=== PATIENT | male | born 1990 | race Caucasian/White ===

== ENCOUNTER 2017-03-23 13:06 | Emergency (ER) | payer MEDICAID ==
[~2017-03-23] VITALS: Ht 167.6 cm; Wt 96.0 kg
[2017-03-23 13:11] VITALS: Ht 167.6 cm; Wt 96.0 kg
[2017-03-23] MEDS ORDERED: CEPH-443 PO (14:16)
[2017-03-23] MEDS ORDERED: NEOM1PAC TP (14:16)
--- NOTE | 2017-03-23 15:19 | ERD ---
ER Documentation Chief Complaint Date/Time DATE: 03/23/17 TIME: 15:10 Chief Complaint suture removal to the back and left lower leg; painful to touch HPI This 26-year-old male who presents to the emergency department today for suture removal. Patient states he had sutures placed at [facility] in [place] on March 16, 2017. States that he was told some of his sutures are absorbable. States he was not given any antibiotics. States that he is concerned that 1 of his wound is infected. States that he was moving a bunch of items when several 100s of pounds of glass mirrors dropped while he was try to get out of the back of the truck and he states he fell backward. States that he had x-rays that were negative. States that he does have some low back pain. Denies any fevers or chills. ROS All systems reviewed and are negative except as per history of present illness. Medications Home Meds Active Scripts Neomycin Farley/Bacitrac Zn/Poly (Triple Antibiotic Ointment) 1 Each Oint.pack, 1 EACH TP BID, #10 Prov:TESSIE GONZALEZ PA-C 03/23/17 Cephalexin* (Keflex*) 500 Mg Capsule, 500 MG PO QID for 7 Days, CAP Prov:TESSIE GONZALEZ PA-C 03/23/17 Allergies Allergies: Coded Allergies: No Known Allergy (Unverified , 03/23/17) PMhx/Soc Hx Alcohol Use: Yes Hx Substance Use: No Hx Tobacco Use: No Smoking Status: Never smoker Physical Exam Vitals Vital Signs Date Time Temp Pulse Resp B/P Pulse Ox O2 Delivery O2 Flow Rate FiO2 03/23/17 13:11 98.2 110 18 156/87 97 Physical Exam Const: pleasant, No acute distress Head: Atraumatic Eyes: Normal Conjunctiva ENT: Normal External Ears, Nose and Mouth. Neck: Full range of motion..~ No meningismus. Resp: Clear to auscultation bilaterally Cardio: Regular rate and rhythm, no murmurs Abd: Soft, non tender, non distended. Normal bowel sounds Skin: Upper thoracic back with evidence of sutures placed. No erythema or warmth. No purulent drainage. Left leg with evidence of sutures placed. Localized erythema and mild drainage. Pulses 2+. Distal neurovascularly intact. Back: Lumbar spine no midline tenderness. Left sided paraspinal tenderness. Full active range of motion. Mild tenderness palpation. Pulses 2+. Distal neurovascularly intact Ext: No cyanosis, or edema Neur: Awake and alert Psych: Normal Mood and Affect Procedures/MDM This a 26-year-old male who presents the emergency department today for suture removal of sutures that he had placed at [facility]. I did ask the patient why he did not return to the hospital and he indicated that he was told to come to any emergency department he lives out in this area. Patient is afebrile and otherwise well-appearing. He is slightly tachycardic. On physical exam patient had evidence of sutures over his left anterior aspect of his lower leg as well as his upper thoracic region. Patient had indicated that he did have x-rays done on his shoulder and upper back and leg and there was no evidence of glass or foreign body remaining. I did remove 11 sutures on the patient's upper back and several on his lower extremity. Parts the area several sutures on the patient's lower extremity appeared to be absorbably however I did remove some of them given that the area around was erythematous. Patient tolerated the procedure well and there were no complication. 2 sutures were left in place to allow more time for healing. I have explained this to the patient. Given that there was some localized erythema I did give the patient a prescription for Keflex and triple antibiotic ointment. Patient was instructed to follow back up in 48 hours for a wound check and removal of those last 2 sutures. Patient was also complaining of low back pain and states that he did not have imaging done of his low back. Patient has no midline tenderness and I do not feel that he requires imaging at this time however given that patient fell on his back with a significant amount of weight on top of them I did offer to obtain imaging. Patient has declined at this time and stated that if his back was still hurting in a couple of days that he would return at that time when he had his sutures out. I do have low suspicion for acute fracture dislocation especially given that he has no midline tenderness. He does have some left-sided paraspinal pain and symptoms at this time likely most consistent with a contusion versus sprain versus strain. I have explained this to the patient At this time the patient is stable for discharge and outpatient management. Patient should follow up with their PCP in the next 1-2 days. They may return to the emergency department sooner for any persistent or worsening of symptoms. Patient understood and agreed with the plan. Departure Diagnosis: Primary Impression: Encounter for removal of sutures Additional Impression: Back pain Back pain location: low back pain Chronicity: acute Back pain laterality: left Sciatica presence: without sciatica Qualified Code: M54.5 - Acute left- sided low back pain without sciatica Condition: Fair Patient Instructions: Back Pain (Acute Or Chronic), Suture Removal, No Complication Referrals: your PCP Additional Instructions: Call your primary care doctor TOMORROW for an appointment during the next 1-2 days.See the doctor sooner or return here if your condition worsens before your appointment time. Wound check in 48 hours Take antibiotics as prescribed Use triple antibiotic Keep wound clean and dry Take Tylenol or Motrin for pain TESSIE GONZALEZ PA-C Mar 23, 2017 15:19
== END 2017-03-23 14:23 | disposition home or self-care (01) ==
LOC: FTE 13:06
DX: Z48.02 Encounter for removal of sutures (principal); M54.5 Low back pain
CPT/HCPCS: 99284

== ENCOUNTER 2017-03-25 14:23 | Emergency (ER) | payer MEDICAID ==
[~2017-03-25] VITALS: Wt 92.5 kg
[~2017-03-25 14:23] MED LIST: CEPH-443 PO; NEOM1PAC TP
[2017-03-25] MEDS ORDERED: LIDOCAINE 4% CR TOP ONE (15:00)
[2017-03-25 16:06] LABS: URINE BLOOD (Dip) POC Negative (NEGATIVE)
--- NOTE | 2017-03-25 16:43 | RADRPT ---
PROCEDURE: XR Lumbar Spine. CLINICAL INDICATION: Fall, pain TECHNIQUE: AP, lateral and cone-down lateral views of the lumbar spine were obtained. COMPARISON: No prior studies are available for comparison. FINDINGS: There is a normal lumbar lordosis. Vertebral body heights appear normal. Intervertebral disk spaces are maintained There is no fracture or dislocation. The facet joints are unremarkable. There is no pars defect identified. The sacroiliac joints appear normal. The soft tissues appear unremarkable. IMPRESSION: Unremarkable lumbar spine. No visualized fracture or dislocation. RPTAT: HBST .Elijah Aparicio MD, MD Date Time Electronically viewed and signed by .Elijah Aparicio MD, on 03/25/2017 16:43 .T/
[2017-03-25] MEDS ORDERED: IBUP-1542 PO (16:58)
--- NOTE | 2017-03-25 17:21 | ERD ---
ER Documentation Chief Complaint Date/Time DATE: 03/25/17 TIME: 17:17 Chief Complaint LEFT KNEE SUTURE REMOVAL HPI This is a 26-year-old male presents to the ER for suture removal of his left knee. Patient has [address] He denies any fevers or chills. Patient states that he has lower back pain and that he would like x-rays of his lower back. Patient describes pain as throbbing it is worse whenever he moves. Pain is nonradiating. He denies any urinary bowel incontinence. He denies any IV drug use. Patient denies any numbness, tingling, weakness of his upper or lower extremities. ROS All systems reviewed and are negative except as per history of present illness. Medications Home Meds Active Scripts Ibuprofen* (Motrin*) 600 Mg Tab, 600 MG PO Q6, #30 TAB Prov:ANGI LOVELACE 03/25/17 Neomycin Farley/Bacitrac Zn/Poly (Triple Antibiotic Ointment) 1 Each Oint.pack, 1 EACH TP BID, #10 Prov:TESSIE GONZALEZ PA-C 03/23/17 Cephalexin* (Keflex*) 500 Mg Capsule, 500 MG PO QID for 7 Days, CAP Prov:TESSIE GONZALEZ PA-C 03/23/17 Allergies Allergies: Coded Allergies: No Known Allergy (Unverified , 03/23/17) PMhx/Soc History of Surgery: No Anesthesia Reaction: No Hx Neurological Disorder: No Hx Respiratory Disorders: No Hx Cardiac Disorders: No Hx Psychiatric Problems: No Hx Miscellaneous Medical Probl: No Hx Alcohol Use: Yes Hx Substance Use: No Hx Tobacco Use: No Smoking Status: Never smoker Physical Exam Vitals Vital Signs Date Time Temp Pulse Resp B/P Pulse Ox O2 Delivery O2 Flow Rate FiO2 03/25/17 14:24 98.1 107 18 147/75 99 Physical Exam GENERAL: The patient is well developed and appropriate for usual state of health , in no apparent distress. NECK: C-spine is soft and supple. There is no cervical lymphadenopathy. CHEST: Clear to auscultation bilaterally. There are no rales, wheezes or rhonchi. HEART: Regular rate and rhythm. No murmurs, clicks, rubs or gallops. BACK: No midline or flank tenderness. Patient does not have any lumbar vertebral point tenderness. Tense paraspinal muscles. Negative leg raise test. No step- offs. EXTREMITIES: left knee: There is 2 simple interrupted sutures that appeared to be buried under patient's skin. no discharge or erythema. NEURO: Alert and oriented. Results 24 hrs Laboratory Tests Test 03/25/17 16:11 Bedside Urine pH (LAB) 6.5 Bedside Urine Protein (LAB) Trace Bedside Urine Glucose (UA) Negative Bedside Urine Ketones (LAB) Negative Bedside Urine Blood Negative Bedside Urine Nitrite (LAB) Negative Bedside Urine Leukocyte Esterase (L Negative Current Medications Medications (Trade) Dose Ordered Sig/Paige Route PRN Reason Start Time Stop Time Status Last Admin Dose Admin Lidocaine (Lmx 4% Plus) 1 applic ONCE ONCE TOP 03/25/17 15:00 03/25/17 15:01 DC 03/25/17 14:48 Procedures/MDM Differential Diagnosis includes but is not limited to back strain, vertebral fracture, epidural abscess, cauda equina, herniated disc, AAA rupture, kidney stones, UTI, pyelonephritis. Patient is neurovascularly intact with normal range of motion of bilateral lower extremities. X-ray was normal as is likely a back sprain secondary to injury. Patient is afebrile and well-appearing suspicion for cauda equina or epidural abscess is low. Patient will be sent home with ibuprofen. In regards to patient's sutures they were removed without any complications. At this time I do not believe patient has an infection, however patient needs to complete the antibiotic course given to him yesterday. Patient is to follow-up with his primary care doctor within 1-2 days return to ER sooner if symptoms worsen. My medical decision making was shared with the patient he understands and agrees with plan. Departure Diagnosis: Primary Impression: Back pain Additional Impression: Encounter for removal of sutures Condition: Stable Patient Instructions: Suture Removal, No Complication Additional Instructions: Call your primary care doctor TOMORROW for an appointment during the next 1-2 days.See the doctor sooner or return here if your condition worsens before your appointment time. ANGI LOVELACE Mar 25, 2017 17:21
== END 2017-03-25 17:05 | disposition home or self-care (01) ==
LOC: FTE 14:23
DX: M54.5 Low back pain (principal)
CPT/HCPCS: 72100; 81003; Z7610